=== PATIENT | female | born 2000 | race Two or more races ===

== ENCOUNTER 2024-09-07 18:50 | Outpatient (CLI) | payer MEDICAID, SELFPAY ==
[2024-09-07 20:59] VITALS: BP 117/79; PULSE 79; RESP 18; TEMP 36.3; O2SAT 100; BMI 35.2
== END 2024-09-07 20:24 | disposition home or self-care (01) ==
LOC: S4S1 18:56 → S4SX 18:57
PROVIDERS: Referring Provider Specialist; Visit Provider Specialist
DX: Z34.03 Encounter for supervision of normal first pregnancy, third trimester (principal); Z3A.38 38 weeks gestation of pregnancy
CPT/HCPCS: 59025

== ENCOUNTER 2024-09-19 08:30 | Inpatient (IN) | payer MEDICAID, SELFPAY ==
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
[2024-09-19] VITALS (95 sets, daily range): BP systolic 113–126; BP diastolic 72–77; PULSE 65–232; RESP 18; TEMP 36.7–36.8; O2SAT 49–100; BMI 36.1
[2024-09-19 10:04] LABS: Basophils % (Auto) 0 % (0-2.5); Eosinophils # (Auto) 0.2 Thou/mm3 (0.0-0.5); Eosinophils % (Auto) 1 % (0-10); Hematocrit 34.5 % (36.0-46.0); Hemoglobin 11.5 g/dL (12.0-16.0); Immature Granulocytes % (Auto) 1 % (0-0); Immature Granulocytes Auto 0.06 Thou/mm3 (0.00-0.00); Lymphocytes % (Auto) 16 % (10-50); Mean Corpuscular HGB Conc 33.3 g/dl (31.0-37.0); Mean Corpuscular Hemoglobin 29.8 pg (25.0-35.0); Mean Corpuscular Volume 89 fL (80-100); Monocytes # (Auto) 0.8 Thou/mm3 (0.0-0.8); Monocytes % (Auto) 6 % (0-12); Neutrophils # (Auto) 9.2 Thou/mm3 (1.8-7.7); Neutrophils % (Auto) 76 % (37-80); Nucleated Red Blood Cell % 0 /100 WBC (0); Platelet Count 278 Thou/mm3 (140-440); RDW Standard Deviation 43.2 fL (36.4-46.3); Red Blood Count 3.86 Miln/mm3 (4.00-5.20); White Blood Count 12.2 Thou/mm3 (3.6-11.0)
[2024-09-19] MEDS: DINOPROSTONE 10 MG VAG.SUPP VAGINAL (10:05)
[2024-09-19 10:40] LABS: Syphilis Nonreactive (Nonreactive)
[2024-09-19] MEDS: PROMETHAZINE INJ 25 MG/ML VIAL IM (20:59)
[2024-09-19] MEDS: MEPERIDINE INJ 50 MG/ML VIAL IM (21:00)
[2024-09-19] MEDS: RINGERS LACTATED 1000 ML 1,000 ML 999 ML IV (23:00)
[2024-09-20] VITALS (102 sets, daily range): BP systolic 0–134; BP diastolic 0–83; PULSE 65–118; RESP 16–18; TEMP 36.6–37.5; O2SAT 87–100
[2024-09-20] MEDS: RINGERS LACTATED 1000 ML 1,000 ML 100 ML IV (00:37)
[2024-09-20] MEDS: OXYTOCIN in NS 20 units 20 UNIT/1,000 ML BAG 125 UNIT IV (03:49)
--- NOTE | 2024-09-20 03:59 | PD.LDDS ---
DS: Providers Provider Date of admission: 09/19/24 08:30 Primary care physician: Physician No Primary/Family Admitting Provider: Adam Duckworth MD Attending Provider on Admission: Adam Duckworth MD Attending Provider on DC: Adam Duckworth MD Discharging Provider: Adam Duckworth MD DS: Diagnosis Problem List Completed Was Problem List Reviewed/Reconciled?: Yes Summary/Hosp Course Time Spent with Patient Time attestation: Total time spent providing and/or coordinating discharge services: Exam Vital Signs Temp Pulse Resp BP Pulse Ox 98.1 F 83 18 117/59 L 98 09/19/24 19:10 09/20/24 03:50 09/19/24 19:10 09/20/24 03:50 09/20/24 03:56 Discharge Plan Plan Patient Disposition: HOME (Self Care) Patient condition on transfer: Stable Prescriptions/Referrals Prescriptions/Med Rec: New ibuprofen 600 mg tablet 600 mg PO Q6H PRN (Reason: pain) Qty: 30 0RF Referrals: No Primary/Family,Physician [Primary Care Provider] - Patient/Caregiver Discharge Instructions Discharge Activity: activity as tolerated Other Discharge Activity Instructions:: Follow up office 6 weeks. Print Language: Tajik Stand Alone Forms: Renetta Award Info., Patient Portal Info Letter Discharge Order Discharge Orders: Discharge (Routine); Ordered 09/21/24 Ordered By: Adam Duckworth Planned Discharge Date 09/21/24
[2024-09-20] MEDS: IBUPROFEN TAB 400 MG TABLET 800 MG PO (07:19)
[2024-09-20 10:41] LABS: Basophils % (Auto) 0 % (0-2.5); Eosinophils % (Auto) 0 % (0-10); Hematocrit 31.5 % (36.0-46.0); Hemoglobin 10.6 g/dL (12.0-16.0); Immature Granulocytes % (Auto) 1 % (0-0); Immature Granulocytes Auto 0.08 Thou/mm3 (0.00-0.00); Lymphocytes # (Auto) 2.1 Thou/mm3 (1.0-4.8); Lymphocytes % (Auto) 12 % (10-50); Mean Corpuscular HGB Conc 33.7 g/dl (31.0-37.0); Mean Corpuscular Volume 89 fL (80-100); Monocytes # (Auto) 1.1 Thou/mm3 (0.0-0.8); Monocytes % (Auto) 6 % (0-12); Neutrophils # (Auto) 13.8 Thou/mm3 (1.8-7.7); Neutrophils % (Auto) 81 % (37-80); Nucleated Red Blood Cell % 0 /100 WBC (0); Platelet Count 233 Thou/mm3 (140-440); RDW Standard Deviation 44.3 fL (36.4-46.3); Red Blood Count 3.53 Miln/mm3 (4.00-5.20); White Blood Count 17.1 Thou/mm3 (3.6-11.0)
[2024-09-20] MEDS: ACETAMINOPHEN 325 MG TABLET 650 MG PO (15:05)
--- NOTE | 2024-09-20 16:09 | OBDSUM_ITS ---
Data (Cook) Data Hx Section: No : 1 Para: 0 Term: 0 : 0 : 0 Delivery Data (Cook) Labor Data Induction: Yes ROM Date: 09/19/24 ROM Time: 22:50 Rupture Type: SROM Amniotic Fluid: Clear Delivery Data EDC: 09/19/24 EDC calculated by:: LMP/early US confirmation Labor Onset Stage 1 Date: 09/19/24 Labor Onset Stage 1 Time: 22:50 Labor Onset Stage 2 Date: 09/20/24 Labor Onset Stage 2 Time: 03:36 Delivery Date: 09/20/24 Delivery Time: 03:38 Gestational age (weeks): 40 Gestational age (days): 1 Placenta Delivery Date: 09/20/24 Placenta Delivery Time: 03:49 Delivered by: Adam Duckworth Delivery nurse: Mayte Gamboa Other staff at delivery: Nursery Nurse Other staff at delivery: Sybil Mott Delivery Method Delivery: Vaginal Delivery Type: Spontaneous Presentation: Vertex Position: JULITA Anesthesia Type Primary Anesthesia: Epidural Delivery Room Medications Other Intrapartum Medications: Yes Placenta Placenta Delivery: Spontaneous Placenta Cultures Obtained: No Placenta Sent for Examination: No Cord Sample: Cord Blood Obtained Episiotomy Episiotomy: None Lacerations #1: Perineal: 1st degree Labial: Periclitoral 2nd degree Perineal repair Sutures used for repair: 3.0 Chromic EBL Estimated blood loss (ml): 200 Umbilical Cord Umbilical Vessels: 3 Nuchal Cord: None Body Cord: None Complications Complications: None Tie Siding Data (Cook) Tie Siding Data Infant Gender: Male Infant Weight Grams: 3160 1 Minute Total: 9 5 Minute Total: 9
[2024-09-21] VITALS: BP 104/70; PULSE 83; RESP 19; TEMP 36.7; O2SAT 98
[2024-09-21 04:11] VITALS: BP 122/81; PULSE 86; RESP 19; TEMP 36.9; O2SAT 97
[2024-09-21 07:58] VITALS: BP 116/81; PULSE 92; RESP 18; TEMP 37; O2SAT 98
--- NOTE | 2024-09-21 09:18 | ESPR_ITS ---
RE: MUNIR HECTOR : 2000 DATE OF SERVICE: 09/21/2024 S: day #1, the patient denies any problem or complaints. She is avoiding. She is ambulating. She is tolerating diet. She is passing flatus. She denies any excessive vaginal bleeding. She denies any dizziness or lightheadedness. She denies any chest pain, palpitations, shortness of breath, or lower extremity pain. O: Vital Signs: Blood pressure is 116/81, heart rate 92, respirations 18, temperature 98.6, and pulse oximetry 98% on room air. Lungs: Clear to auscultation bilaterally. Heart: Regular rate and rhythm. Abdomen: Fundus is firm. Extremities: Nontender. Laboratory Data: Hemoglobin predelivery is 11.5, post delivery is 10.6. A: day #1, status post spontaneous vaginal delivery. P: Discharge home. Discharge instructions given. Follow up in the office in 6 weeks. DT: 08:30:44 TT: 09:17:00 Ref: [id number] - TID: [id number]
== END 2024-09-21 10:48 | disposition home or self-care (01) | DRG 560 ==
LOC: S4SX 08:40 → S4NX 09:59 → S4SX 10:03 → S4NX 09-20 08:20
PROVIDERS: Admitting Provider Specialist; Visit Provider Specialist
DX: O48.0 Post-term pregnancy (principal); O99.52 Diseases of the respiratory system complicating childbirth; J45.909 Unspecified asthma, uncomplicated; Z37.0 Single live birth; Z3A.40 40 weeks gestation of pregnancy; O70.0 First degree perineal laceration during delivery; I34.1 Nonrheumatic mitral (valve) prolapse
CPT/HCPCS: 36415; 59409; 85025; 86780; 86850; 86900; 86901; J2175; J2550; J2590; J2795; J3010; J7120; A9270